=== PATIENT | female | born 1940 | race Caucasian/White ===

== ENCOUNTER 2021-02-19 13:23 | Emergency (ER) | payer OTHER ==
[~2021-02-19] VITALS: Ht 152.4 cm; Wt 45.4 kg
[2021-02-19] MEDS ORDERED: METHOCARBAMOL 500 MG TABLET PO ONE (13:30)
[2021-02-19] MEDS ORDERED: FENTANYL CITRATE 100 MCG/2 ML AMPUL IV ONE (13:30)
[2021-02-19] MEDS ORDERED: KETOROLAC TROMETHAMINE 15 MG INJ IVP ONE (13:30)
--- NOTE | 2021-02-19 13:30 | NUR ---
Patient brought in by [id number] for back pain, patient noted crying while being wheeled in [place] [facility]
[2021-02-19] MEDS ORDERED: METHOCARBAMOL 500 MG TABLET ONE (13:45)
[2021-02-19] MEDS ORDERED: FENTANYL CITRATE 100 MCG/2 ML AMPUL ONE ×2 (13:45→14:47)
[2021-02-19] MEDS ORDERED: KETOROLAC TROMETHAMINE 15 MG INJ ONE (13:45)
[2021-02-19 13:51] LABS: BASOPHILS % (AUTO) 0.5 % (0.0-2.0); EOSINOPHILS % (AUTO) 0.4 % (0.0-7.0); HEMATOCRIT 40.6 % (31.2-41.9); HEMOGLOBIN 13.9 g/dL (10.9-14.3); LYMPHOCYTES # (AUTO) 0.8 K/uL (20.0-40.0); LYMPHOCYTES % (AUTO) 11.2 % (20.5-51.5); MEAN CORPUSCULAR HEMOGLOBIN 32.2 uug (24.7-32.8); MEAN CORPUSCULAR HGB CONC 34 g/dL (32.3-35.6); MEAN CORPUSCULAR VOLUME 94.2 fL (75.5-95.3); MONOCYTES # (AUTO) 0.4 K/uL (2.0-10.0); MONOCYTES % (AUTO) 5.5 % (0.0-11.0); NEUTROPHILS % (AUTO) 82.4 % (38.5-71.5); PLATELET COUNT (AUTO) 351 K/uL (179-408); WHITE BLOOD COUNT (AUTO) 7.3 K/uL (3.8-11.8)
[2021-02-19 13:52] LABS: CARBON DIOXIDE 29 mmol/L (21-32); CHLORIDE 88 mmol/L (98-107); CREATININE 0.5 mg/dL (0.6-1.3); GLUCOSE 227 mg/dL (74-106); POTASSIUM 4.3 mmol/L (3.5-5.1); UREA NITROGEN, BLOOD 10 mg/dL (7-18)
[2021-02-19 13:58] LABS: ALANINE AMINOTRANSFERASE 16 U/L (14-59); ALKALINE PHOSPHATASE 88 U/L (50-136); ASPARTATE AMINOTRANSFERASE 17 U/L (15-37); BILIRUBIN,TOTAL 0.4 mg/dL (0.2-1.0); TOTAL PROTEIN, SERUM 8.1 g/dL (6.4-8.2)
--- NOTE | 2021-02-19 14:01 | NUR ---
Patient taken to radiology at this time for CT scan
[2021-02-19 14:14] LABS: *BILIRUBIN,URIN NEGATIVE (NEGATIVE); *BLOOD, URINE NEGATIVE (NEGATIVE); *CLARITY,URINE CLEAR (CLEAR); *COLOR,URINE YELLOW (YELLOW); *KETONES,URINE 1+ (NEGATIVE); *UROBILINOGEN,URINE 0.2 E.U./dl (NORMAL); LEUKOCYTE ESTERASE ,URINE NEGATIVE (NEGATIVE); NITRITE, URINE NEGATIVE (NEGATIVE); PH,URINE 7.5 (5.0-8.0)
[2021-02-19 14:32] LABS: UGLUCOSE 1+ (NEGATIVE)
[2021-02-19 14:35] LABS: BACTERIA,URINE NONE SEEN /HPF (NONE SEEN); MUCUS,URINE FEW /LPF (0-FEW); RBC,URINE 0-3 /HPF (0-3); SQUAMOUS EPITHELIAL CELL,UR NONE SEEN /HPF (NONE SEEN); WBC,URINE 0-3 /HPF (0-3)
[2021-02-19] MEDS ORDERED: FENTANYL CITRATE 100 MCG/2 ML AMPUL IV PRN ×2 (14:45→17:15)
--- NOTE | 2021-02-19 16:22 | NUR ---
Patient noted resting in bed, son at bedside, vitals WNL
--- NOTE | 2021-02-19 17:30 | NUR ---
Report given to Sofy VU of [facility]
--- NOTE | 2021-02-19 18:49 | NUR ---
[facility] picking up patient for transport at this time, no signs of acute distress noted, patient took all belongings, Patient Tranfers to outside Facility: [facility] Physician: MD Carpio
[2021-02-22] MEDS ORDERED: FENTANYL 50 MCG/HR PATCH TD SCH (09:00)
== END 2021-02-19 18:56 | disposition short-term general hospital (02) ==
LOC: ER 13:23
DX: E87.1 Hypo-osmolality and hyponatremia (principal); M54.5 Low back pain; Z20.822 Contact with and (suspected) exposure to COVID-19; M48.54XD Collapsed vertebra, not elsewhere classified, thoracic region, subsequent encounter for fracture with routine healing; M48.56XD Collapsed vertebra, not elsewhere classified, lumbar region, subsequent encounter for fracture with routine healing; E11.9 Type 2 diabetes mellitus without complications; E78.00 Pure hypercholesterolemia, unspecified; I25.10 Atherosclerotic heart disease of native coronary artery without angina pectoris; Z88.6 Allergy status to analgesic agent; Z88.1 Allergy status to other antibiotic agents; Z88.0 Allergy status to penicillin; Z88.2 Allergy status to sulfonamides
CPT/HCPCS: 36415; 72125; 72128; 72131; 80053; 81001; 82962; 85025; 87426; 96374; 96375; 96376; 99285; J1885; J3010 ×2; A4663